=== PATIENT | female | born 1995 | race Caucasian/White ===

== ENCOUNTER 2021-06-28 15:42 | Inpatient (IN) | payer OTHER ==
[~2021-06-28] VITALS: Ht 157.5 cm; Wt 52.2 kg
[2021-07-01] MEDS ORDERED: PANTOPRAZOLE SO20 MG (10:40)
[2021-07-01] MEDS ORDERED: FAMOTIDINE20 MG (10:40)
[2021-07-01] MEDS ORDERED: NUVARING VAGIN1 EACH (10:40)
[2021-07-01] MEDS ORDERED: BENZOYL PEROXI142 GM (10:41)
[2021-07-01] MEDS ORDERED: ARIPIPRAZOLE2 MG (10:41)
[2021-07-05] MEDS ORDERED: FAMOTIDINE20 MG PO (09:13)
[2021-07-05] MEDS ORDERED: INTESTINEX680 M1 PO (09:13)
[2021-07-05] MEDS ORDERED: PANTOPRAZOLE SO20 MG PO (09:14)
== END 2021-07-05 10:05 | disposition home or self-care (01) | DRG 373 ==
LOC: ER 15:42 → MEDI 20:31
PROVIDERS: ADMIT Internal Medicine Hematology & Oncology; ATTEND Internal Medicine Hematology & Oncology
PROC: 0DB78ZX Excision of Stomach, Pylorus, Via Natural or Artificial Opening Endoscopic, Diagnostic (ICD-10-PCS; principal; 2021-07-04)
DX: A04.72 Enterocolitis due to Clostridium difficile, not specified as recurrent (principal); K44.9 Diaphragmatic hernia without obstruction or gangrene; K29.60 Other gastritis without bleeding; E86.0 Dehydration; E87.8 Other disorders of electrolyte and fluid balance, not elsewhere classified; N83.201 Unspecified ovarian cyst, right side; R10.2 Pelvic and perineal pain; F12.988 Cannabis use, unspecified with other cannabis-induced disorder; Z15.01 Genetic susceptibility to malignant neoplasm of breast; Z15.02 Genetic susceptibility to malignant neoplasm of ovary; Z15.09 Genetic susceptibility to other malignant neoplasm

== ENCOUNTER 2022-04-28 21:15 | Emergency (ER) | payer OTHER ==
[~2022-04-28] VITALS: Ht 160 cm; Wt 55.3 kg
[~2022-04-28 21:15] MED LIST: ARIPIPRAZOLE2 MG; BENZOYL PEROXI142 GM; FAMOTIDINE20 MG; FAMOTIDINE20 MG PO; INTESTINEX680 M1 PO; NUVARING VAGIN1 EACH; PANTOPRAZOLE SO20 MG; PANTOPRAZOLE SO20 MG PO
[2022-04-28] MEDS ORDERED: DICLOFENAC SODI75 MG PO (23:50)
[2022-04-28] MEDS ORDERED: ONDANSETRON ODT8 MG PO (23:50)
== END 2022-04-29 00:03 | disposition home or self-care (01) ==
LOC: ER 21:15
DX: K29.70 Gastritis, unspecified, without bleeding (principal); R11.2 Nausea with vomiting, unspecified

== ENCOUNTER 2024-12-23 09:44 | Emergency (ER) | payer OTHER ==
[~2024-12-23] VITALS: Ht 160 cm; Wt 56.7 kg
[~2024-12-23 09:44] MED LIST changes: +DICLOFENAC SODI75 MG PO; +ONDANSETRON ODT8 MG PO
[2024-12-23] MEDS ORDERED: LEXAPRO5 MG PO (10:06)
[2024-12-23] MEDS ORDERED: LAMICTAL25 M1 PO (10:06)
[2024-12-23] MEDS ORDERED: DIPHENHYDRAMINE HCL 50 MG/ML VIAL 1ML IV ONE (10:30)
[2024-12-23] MEDS ORDERED: FAMOtidine 10 MG/ML (4ML VIAL) IV PUSH ONE (10:30)
[2024-12-23] MEDS ORDERED: METHYLPREDNISOLONE SOD SUCC 125 MG VIAL IV ONE (10:30)
[2024-12-23] MEDS ORDERED: 0.9 % SODIUM CHLORIDE 1,000 ML IV SCH (10:30)
[2024-12-23] MEDS ORDERED: ACETAMINOPHEN 500 MG GEL..CAP PO ONE (10:30)
[2024-12-23] MEDS ORDERED: 0.9 % SODIUM CHLORIDE 1,000 ML IV ONE (10:30)
[2024-12-23 11:11] LABS: BASO % 0.3 % (0.1-1.2); EOS # 0.10 (0.04-0.54); EOS % 2.6 % (0.7-7.0); LYMPH # 0.75 (1.18-3.74); LYMPH % 19.1 % (19.3-53.1); MEAN PLATELET VOLUME 10.50 fl (9.4-12.4); MONO # 0.16 (0.24-0.82); MONO % 4.1 % (4.7-12.5); NEUT # 2.90 (1.56-6.13); NEUT % 73.9 % (34.0-71.1); RED CELL DISTRIBUTION WIDTH 12.7 % (11.6-14.4)
[2024-12-23 11:39] LABS: INR 1.09
[2024-12-23 12:41] LABS: ALT/SGPT 23.0 U/L (12-78); AST/SGOT 43.0 U/L (15-37); BILIRUBIN TOTAL 0.45 mg/dL (0.3-1.2); BUN CREA RATIO 17.0 (7.0-25.0); CREATININE SERUM 0.88 mg/dL (0.55-1.02); GFR 76.51; GLOBULINA 3.8 G/DL (2.4-3.5); GLUCOSE FASTING 81.0 mg/dL (65-100); OSMOLALITY SERUM 276.0 MOSM/KG (275-295)
[2024-12-23] MEDS ORDERED: PEPCID20 MG PO (13:14)
[2024-12-23] MEDS ORDERED: ALLEGRA-D 24 H1 EACH PO (13:14)
[2024-12-23] MEDS ORDERED: MEDROLPACK PO (13:14)
== END 2024-12-23 13:37 | disposition home or self-care (01) ==
LOC: ER 09:44
PROVIDERS: General Practice
DX: T78.40XA Allergy, unspecified, initial encounter (principal); F31.89 Other bipolar disorder